=== PATIENT | male | born 1995 | race Caucasian/White ===

== ENCOUNTER 2021-04-20 00:34 | Emergency (ER) | payer OTHER ==
--- NOTE | 2021-04-20 00:50 | EDM.PDOC ---
ED HPI GENERAL MEDICAL PROBLEM - General Chief Complaint: Laceration Stated Complaint: LEFT RING FINGER INJURY Time Seen by Provider: 04/20/21 00:38 Source of Information: Reports: Patient History Limitations: Reports: No Limitations - History of Present Illness INITIAL COMMENTS - FREE TEXT/NARRATIVE: 26-year-old male presents with left fourth finger laceration after his left 4th finger was caught in a rotary tong in his glove in a work related injury. Tetanus not UTD. Pain localized to the distal phalanx, nonradiating, constant, moderate, nonradiating or exacerbating factors, sharp. ROS: A 10-point review of systems, other than pertinent positives and negatives as stated per HPI, is otherwise negative Past medical history: No additional pertinent history Past Surgical history: No additional pertinent history Social history: No additional pertinent history Family history: No additional pertinent history PHYSICAL EXAM General: AOx4, GCS = 15, No distress HEENT: dry mucous membrane Neck: supple, no meningismus, no Kernig or Brudzinski Cardiac: S1S2 RRR Respiratory: CTAB, no crackles or rales, no wheezing Abdomen: Soft, nontender, no rebound or guarding, nondistended, no pulsatile mass. Back: nontender Musculoskeletal: NVI distally, no deformity, left fourth digit distal phalanx nail plate avulsed Neuro: No focal deficits, CN 2 - 12 WNL. Left Finger-Index Pain Score (Numeric/FACES): 3 - Related Data Allergies Allergy/AdvReac Type Severity Reaction Status Date / Time No Known Allergies Allergy Verified 04/20/21 00:49 Home Meds: Home Meds Acetaminophen/oxyCODONE [Percocet 325-5 MG] 1 each PO Q6H PRN #12 tab 04/20/21 [Rx] cephALEXin [Keflex] 500 mg PO Q8H #30 cap 04/20/21 [Rx] ED ROS GENERAL - Review of Systems Review Of Systems: See Below (see dictation) ED EXAM, SKIN/RASH Exam: See Below (see dictation) ED SKIN PROCEDURES - Additional/Other Procedure(s) Other (Free Text) Procedure(s): LACERTION REPAIR: A time-out was completed verifying correct patient, procedure, site, positio jag, and special equipment if applicable. Consent obtained after discussing risks, benefits, and alternatives. The wound was irrigated with saline and digitally blocked with 1% lidocaine. The wound was a complex flap with proximal nail plate avulsion, laceration noted to be 3 cm in length. The wound was not contaminated with foreign body debris and was extensively irrigated with saline. NV intact distally. Dorsal tension band suture was placed in a [id number] loop using a 3-0 ethilon suture after reducing the nail plate below the eponychium. The wound edges were approximated. Hemostasis achieved. Finger was placed in a bulky nonadhesive dressing and follow up care discussed for suture removal in 3 weeks, along with weekly dressing changes. Risk of infection and follow up suture removal discussed. Time spent: 20 min Course - Vital Signs Last Recorded V/S: Last Vital Signs Temp 97.5 F 04/20/21 00:44 Pulse 98 04/20/21 00:44 Resp 16 04/20/21 00:44 BP 129/93 H 04/20/21 00:44 Pulse Ox 98 04/20/21 00:44 - Orders/Labs/Meds Orders: Active Orders 24 hr Category Date Time Status Vaccine to be Administered/Admin Charge [RC] ASDIRECTED Care 04/20/21 00:54 Active Fingers Fourth Digit Lt F3 [CR] Stat Exams 04/20/21 00:57 Ordered Meds: Medications Discontinued Medications Generic Name Dose Route Start Last Admin Trade Name [place] PRN Reason Stop Dose Admin Hydrocodone Bitart/Acetaminophen 1 tab 04/20/21 00:54 Acetaminophen/Hydrocodone 325-10 Mg Tab PO 04/20/21 00:55 ONETIME ONE Diphtheria/Tetanus/Acell Pertussis 0.5 ml 04/20/21 00:54 Diphtheria,Pertussis(Acell),Tetanus Vaccine 0.5 Ml Syringe IM 04/20/21 00:55 .ONCE ONE Lidocaine HCl 10 ml 04/20/21 00:55 Lidocaine 1% 5 Ml Sdv INJECT 04/20/21 00:56 ONETIME ONE Departure - Departure Time of Disposition: 01:56 Disposition: Home, Self-Care 01 Condition: Good Clinical Impression: Avulsion of nail plate, Fracture of distal phalanx of finger, open, Work related injury - Discharge Information *PRESCRIPTION DRUG MONITORING PROGRAM REVIEWED*: Not Applicable *COPY OF PRESCRIPTION DRUG MONITORING REPORT IN PATIENT EMPERATRIZ: Not Applicable Prescriptions: cephALEXin [Keflex] 500 mg PO Q8H #30 cap Acetaminophen/oxyCODONE [Percocet 325-5 MG] 1 each PO Q6H PRN #12 tab PRN Reason: Pain (Moderate 4-6) Instructions: Finger Fracture, Adult, [id number], Laceration Care, Adult, [id number], Nail Bed Injury, [id number] Referrals: Gutierrez Rivera MD [Ordering Only Provider] - 3 Days (Be sure to follow-up for suture removal in 21 days, with weekly dressing changes.) Carlos Galicia [Ordering Only Provider] - 3 Days Forms: ED Department Discharge Additional Instructions: The need for follow-up, as well as the timing and circumstances, are variable depending upon the specifics of your emergency department visit. If you don't have a primary care physician on staff, we will provide you with a referral. We always advise you to contact your personal physician following an emergency department visit to inform them of the circumstance of the visit and for follow-up with them and/or the need for any referrals to a consulting specialist. The emergency department will also refer you to a specialist when appropriate. This referral assures that you have the opportunity for follow-up care with a specialist. All of these measure are taken in an effort to provide you with optimal care, which includes your follow-up. Under all circumstances we always encourage you to contact your private physician who remains a resource for coordinating your care. When calling for follow-up care, please make the office aware that this follow-up is from your recent emergency room visit. If for any reason you are refused follow-up, please contact the [facility] Emergency Department at and asked to speak to the emergency department charge nurse. If you do not have a primary care doctor, please follow up with the clinics below within 3-5 days. Stacey Rosales [facility] - Primary Care [address] [place] [id number] [facility] [address] [place] [address] Sepsis Event Note (ED) - Focused Exam Vital Signs: Vital Signs Temp Pulse Resp BP Pulse Ox 04/20/21 00:44 97.5 F 98 16 129/93 H 98 - My Orders Last 24 Hours: My Active Orders 04/20/21 00:54 Vaccine to be Administered/Admin Charge [RC] ASDIRECTED 04/20/21 00:57 Fingers Fourth Digit Lt F3 [CR] Stat - Assessment/Plan Last 24 Hours: My Active Orders 04/20/21 00:54 Vaccine to be Administered/Admin Charge [RC] ASDIRECTED 04/20/21 00:57 Fingers Fourth Digit Lt F3 [CR] Stat
[2021-04-20] MEDS ORDERED: Diphtheria,Pertussis(Acell),Tetanus Vaccine 0.5 ML Syringe IM ONE (00:54)
[2021-04-20] MEDS ORDERED: Acetaminophen/HYDROcodone 325-10 MG Tab PO ONE (00:54)
[2021-04-20] MEDS ORDERED: Acetaminophen/HYDROcodone 325-10 MG Tab ONE (00:59)
[2021-04-20] MEDS ORDERED: Diphtheria,Pertussis(Acell),Tetanus Vaccine 0.5 ML Syringe ONE (01:00)
--- NOTE | 2021-04-20 01:17 | CR ---
INDICATION: Injury distal phalanx TECHNIQUE: Finger radiograph 3 views left 4th COMPARISON: None FINDINGS: Bone: There is a comminuted, displaced fracture of the distal 4th phalangeal tuft noted. Joint: The metacarpophalangeal and interphalangeal joints are normal in appearance. Soft tissue: Injury of the 4th nail bed is noted. There are punctate densities in the [place] soft tissues which may be due to debris or foreign bodies. IMPRESSIONS: 1. There is a comminuted, displaced fracture of the distal 4th phalangeal tuft noted. 2. Injury of the 4th nail bed is noted. There are punctate densities in the [place] soft tissues which may be due to debris or foreign bodies. Dictated by Kev Lizarraga MD @ 04/20/2021 1:14:45 AM Dictated by: Kev Lizarraga MD @ 04/20/2021 01:14:51 (Electronically Signed)
== END 2021-04-20 02:18 | disposition home or self-care (01) ==
LOC: MW.ED 00:34
DX: S62.635B Displaced fracture of distal phalanx of left ring finger, initial encounter for open fracture (principal); Z23 Encounter for immunization; W23.0XXA Caught, crushed, jammed, or pinched between moving objects, initial encounter; Y92.89 Other specified places as the place of occurrence of the external cause; Y99.0 Civilian activity done for income or pay
CPT/HCPCS: 11730; 73140; 90471; 90715; 99283; A9270